=== PATIENT | female | born 1960 | race American Indian/Alaskan Native ===

== ENCOUNTER 2017-09-06 10:37 | Emergency (ER) | payer OTHER ==
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
[2017-09-06] MEDS ORDERED: ULTRAM PO ONE (11:45)
[2017-09-06] MEDS ORDERED: FLEXERIL PO ONE (11:45)
[2017-09-06 13:19] VITALS: BP 156/84
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
== END 2017-09-06 13:17 | disposition home or self-care (01) ==
LOC: ED 10:37
DX: R07.89 Other chest pain (principal); M79.1 Myalgia; I10 Essential (primary) hypertension; E11.9 Type 2 diabetes mellitus without complications
CPT/HCPCS: 93005; 93010